=== PATIENT | male | born 1950 | race Caucasian/White ===

== ENCOUNTER 2024-04-13 14:36 | Emergency (ER) | payer BC, MEDICAID ==
[~2024-04-13] VITALS: Ht 167.6 cm; Wt 73.0 kg
[2024-04-13 14:50] VITALS: TEMP 98.5; O2SAT 98
[2024-04-13] MEDS ORDERED: METHOCARBAMOL 500MG TABLET PO ONE (15:00)
[2024-04-13] MEDS ORDERED: KETOROLAC 30MG/ML VIAL IM ONE (15:00)
[2024-04-13] MEDS ORDERED: IBUP-2029 MT (16:20)
[2024-04-13] MEDS ORDERED: METH-653 MT (16:20)
[2024-04-13] MEDS: KETOROLAC 30MG/ML VIAL IM NR (17:03)
[2024-04-13] MEDS: ONDANSETRON 4MG ODT PO ONE (17:03)
[2024-04-13] MEDS: METHOCARBAMOL 500MG TABLET PO NR (17:03)
[2024-04-13 17:16] LABS: CHLORIDE 104 mEq/L (98-107); POTASSIUM 3.8 mEq/L (3.5-5.1); SODIUM 135 mEq/L (136-145)
[2024-04-13 17:17] LABS: CALCIUM 9.2 mg/dL (8.7-10.4); CARBON DIOXIDE 23 mEq/L (21-32)
[2024-04-13 17:22] LABS: CREATININE 1.1 mg/dL (0.6-1.3); GLUCOSE 158 mg/dL (70-105); UREA NITROGEN BLOOD 15 mg/dL (9-23)
[2024-04-13 17:52] LABS: BASOPHILS % 0.4 % (0.0-2.0); EOSINOPHILS % 0.2 % (0.0-5.0); HEMATOCRIT. 35.3 % (42.0-52.0); HEMOGLOBIN. 11.9 g/dL (14.0-18.0); LYMPHOCYTES % 8.2 % (20.0-50.0); MEAN CORPUSCULAR HEMOGLOBIN 28.8 pg (28.0-32.0); MEAN CORPUSCULAR HGB CONC 33.6 g/dL (31.0-37.0); MEAN CORPUSCULAR VOLUME 85.5 fL (80.0-94.0); MEAN PLATELET VOLUME 6.6 fl (7.4-10.4); MONOCYTES % 8.1 % (2.0-8.0); NEUTROPHILS % 83.1 % (40.0-76.0); PLATELET 441 x1000/uL (130-400); RED BLOOD CELL COUNT 4.12 mill/uL (4.7-6.1); RED CELL DISTRIBUTION WIDTH 15.3 % (11.6-14.6); WHITE BLOOD COUNT 9.8 x1000/uL (4.5-11.0)
[2024-04-13 18:06] LABS: CLARITY URINE CLOUDY (CLEAR); COLOR URINE YELLOW (YELLOW); GLUCOSE URINE NEGATIVE (NEGATIVE); KETONES URINE NEGATIVE (NEGATIVE); LEUKOCYTE ESTERASE URINE 3+ (NEGATIVE); NITRITE URINE NEGATIVE (NEGATIVE); OCCULT BLOOD URINE 3+ (NEGATIVE); PH URINE 7.5 (4.5-8.0); PROTEIN URINE 2+ (NEGATIVE); SPECIFIC GRAVITY URINE 1.018 (1.005-1.030)
[2024-04-13 18:26] LABS: BACTERIA URINE 2+; RBC URINE TNTC /hpf (0-2); SQUAMOUS EPITHELIAL CELL URINE FEW /lpf (RARE/1+); WBC URINE TNTC /hpf (0-2)
[2024-04-13] MEDS ORDERED: TAMS-11 MT (18:49)
[2024-04-13] MEDS ORDERED: CEFP200T13 MT (18:49)
[2024-04-13] MEDS: CEFTRIAXONE SODIUM 1G VIAL IM ONE (19:00)
[2024-04-13 20:25] VITALS: BP 110/65; PULSE 97; RESP 18
== END 2024-04-13 20:26 | disposition home or self-care (01) ==
LOC: ER 15:03
DX: N20.0 Calculus of kidney (principal); N39.0 Urinary tract infection, site not specified; E11.9 Type 2 diabetes mellitus without complications; I10 Essential (primary) hypertension; Z98.890 Other specified postprocedural states
CPT/HCPCS: 99284; 74176; 80048; 81003; 85025; 87086; 87186; 87077; 36415; 72100; Q0162; J1885